=== PATIENT | female | born 1965 | race Caucasian/White ===

== ENCOUNTER 2018-08-23 01:34 | Inpatient (IN) | payer MEDICAID ==
[2018-08-23 02:02] LABS: ADD MAN DIFF? NO
[2018-08-23 02:04] LABS: BASOPHIL # 0.1 10^3/ul (0.0-0.1); BASOPHILS % 0.4 % (0.0-2.0); EOSINOPHILS % 0.1 % (0.0-7.0); HEMATOCRIT 43.4 % (37.0-47.0); HEMOGLOBIN 14.4 g/dl (12.0-16.0); LYMPHOCYTES % 7.6 % (15.0-51.0); MEAN CORPUSCULAR HEMOGLOBIN 29.4 pg (29.0-33.0); MEAN CORPUSCULAR HGB CONC 33.2 g/dl (32.0-37.0); MEAN CORPUSCULAR VOLUME 88.6 fl (82.0-101.0); MEAN PLATELET VOLUME 10.9 fl (7.4-10.4); MONOCYTE # 1.1 10^3/ul (0.3-0.9); MONOCYTES % 8.5 % (0.0-11.0); NEUTROPHIL # 10.4 10^3/ul (1.6-7.5); NEUTROPHILS % 82.9 % (39.0-77.0); PLATELET COUNT 245 10^3/UL (140-415); RED CELL DISTRIBUTION WIDTH 12.4 % (11.5-14.5)
[2018-08-23 02:04] LABS: WHITE BLOOD COUNT 12.5 10^3/ul (4.8-10.8)
[2018-08-23] MEDS: ACETAMINOPHEN 325 MG TAB PO (02:09)
[2018-08-23] MEDS: SODIUM CHLORIDE 0.9% 1L BAG IV* (02:10)
[2018-08-23 02:22] LABS: ADD UMIC YES; UR ASCORBIC ACID NEGATIVE (NEGATIVE); UR BACTERIA FEW /HPF (NONE SEEN); UR BILIRUBIN (Dip) NEGATIVE (NEGATIVE); UR BLOOD (Dip) 2+ mg/dL (NEGATIVE); UR CLARITY CLOUDY (CLEAR); UR COLOR AMBER (YELLOW); UR GLUCOSE (Dip) NEGATIVE (NEGATIVE); UR KETONES (Dip) NEGATIVE (NEGATIVE); UR LEUKOCYTE ESTERASE (Dip) NEGATIVE Leu/ul (NEGATIVE); UR MUCUS MANY /HPF (NONE SEEN); UR NITRITE (Dip) NEGATIVE (NEGATIVE); UR RBC 7 /HPF (0-5); UR SPECIFIC GRAVITY (Dip) 1.031 (1.003-1.030); UR SQUAMOUS EPITHELIAL CELL MANY /HPF (FEW); UR TOTAL PROTEIN (Dip) 3+ mg/dl (NEGATIVE); UR UROBILINOGEN (Dip) 2+ mg/dL (NEGATIVE); UR WBC 18 /HPF (0-5)
[2018-08-23 02:23] LABS: ALANINE AMINOTRANSFERASE 20 IU/L (13-69); ALBUMIN 4.2 g/dl (3.3-4.9); ALKALINE PHOSPHATASE 84 IU/L (42-121); ANION GAP 12 (5-13); ASPARTATE AMINO TRANSFERASE 24 IU/L (15-46); BILIRUBIN,INDIRECT 0.4 mg/dl (0-1.1); BILIRUBIN,TOTAL 0.4 mg/dl (0.2-1.3); BLOOD UREA NITROGEN 11 mg/dl (7-20); CARBON DIOXIDE 26 mmol/L (21-31); CHLORIDE 99 mmol/L (97-110); CREATININE 0.88 mg/dl (0.44-1.00); Estimated GFR > 60 mL/min (>60); GLUCOSE 126 mg/dl (70-220); POTASSIUM 3.6 mmol/L (3.5-5.1); SODIUM 137 mmol/L (135-144); TOTAL PROTEIN 8.4 g/dl (6.1-8.1)
[2018-08-23 02:24] LABS: INR 1.14; PROTIME 14.7 Sec (11.9-14.9); PT RATIO 1.1
[2018-08-23 02:25] LABS: PARTIAL THROMBOPLASTIN TIME 37.2 Sec (23.0-35.0)
[2018-08-23 02:34] LABS: TROPONIN-I < 0.012 ng/ml (0.000-0.120)
[2018-08-23] MEDS: AZTREONAM 2 GM in SOD CHLORIDE 0.9% 100 ML IVPB (03:39)
[2018-08-23] MEDS ORDERED: NACL 0.9% 3 ML SYG IV (04:00)
[2018-08-23] MEDS ORDERED: DOCUSATE SODIUM 100 MG CAP PO (04:00)
[2018-08-23] MEDS ORDERED: BISACODYL (EC) 5 MG TAB PO (04:00)
[2018-08-23] MEDS ORDERED: ACETAMINOPHEN 325 MG TAB PO (04:00)
[2018-08-23 05:57] LABS: LACTIC ACID 0.5 mmol/L (0.5-2.0)
[2018-08-23] MEDS: IOHEXOL 300MG/ML 150 ML BTL (06:37)
[2018-08-23] MEDS: SOD CHLORIDE 0.9% 100 ML (06:37)
[2018-08-23] MEDS: LEVOFLOXACIN 500MG/D5W (PMX) 100 ML IVPB (06:43)
[2018-08-23] MEDS: ASA/ACETAMINOPHEN/CAFF TAB PO (06:59)
[2018-08-23] MEDS: HEPARIN 5,000 UNIT/1 ML VIAL SC ×3 (07:08→22:01)
[2018-08-24] MEDS: LEVOFLOXACIN 750MG/D5W (PMX) 150 ML IVPB (03:51)
[2018-08-24] MEDS ORDERED: LEVOFLOXACIN 750MG/D5W (PMX) 150 ML IVPB (04:00)
[2018-08-24 05:32] LABS: ADD MAN DIFF? NO
[2018-08-24] MEDS: HEPARIN 5,000 UNIT/1 ML VIAL SC ×2 (05:33→14:00)
[2018-08-24 05:38] LABS: WHITE BLOOD COUNT 7.7 10^3/ul (4.8-10.8)
[2018-08-24 05:38] LABS: BASOPHIL # 0.1 10^3/ul (0.0-0.1); BASOPHILS % 0.8 % (0.0-2.0); EOSINOPHILS # 0.1 10^3/ul (0.0-0.5); EOSINOPHILS % 0.8 % (0.0-7.0); HEMOGLOBIN 12.8 g/dl (12.0-16.0); LYMPHOCYTES # 1.1 10^3/ul (0.8-2.9); LYMPHOCYTES % 14.1 % (15.0-51.0); MEAN CORPUSCULAR HEMOGLOBIN 29.4 pg (29.0-33.0); MEAN CORPUSCULAR HGB CONC 32.8 g/dl (32.0-37.0); MEAN CORPUSCULAR VOLUME 89.7 fl (82.0-101.0); MEAN PLATELET VOLUME 10.9 fl (7.4-10.4); MONOCYTE # 0.9 10^3/ul (0.3-0.9); MONOCYTES % 12.1 % (0.0-11.0); NEUTROPHIL # 5.5 10^3/ul (1.6-7.5); NEUTROPHILS % 71.7 % (39.0-77.0); PLATELET COUNT 233 10^3/UL (140-415); RED BLOOD COUNT 4.35 10^6/ul (4.20-5.40); RED CELL DISTRIBUTION WIDTH 12.8 % (11.5-14.5)
[2018-08-24 06:18] LABS: ALANINE AMINOTRANSFERASE 38 IU/L (13-69); ALBUMIN 3.5 g/dl (3.3-4.9); ALBUMIN/GLOBULIN RATIO 0.94; ALKALINE PHOSPHATASE 75 IU/L (42-121); ANION GAP 10 (5-13); ASPARTATE AMINO TRANSFERASE 37 IU/L (15-46); BILIRUBIN,INDIRECT 0.4 mg/dl (0-1.1); BILIRUBIN,TOTAL 0.4 mg/dl (0.2-1.3); BLOOD UREA NITROGEN 8 mg/dl (7-20); CALCIUM 8.6 mg/dl (8.4-10.2); CARBON DIOXIDE 26 mmol/L (21-31); CHLORIDE 104 mmol/L (97-110); CHOL/HDL RATIO 9.4 RATIO; CHOLESTEROL 123 mg/dl (100-200); CREATININE 0.65 mg/dl (0.44-1.00); Estimated GFR > 60 mL/min (>60); GLUCOSE 127 mg/dl (70-220); HDL CHOLESTEROL 13 mg/dl (37-92); LDL CHOLESTEROL,CALCULATED 80 mg/dl; MAGNESIUM 2.1 mg/dl (1.7-2.5); POTASSIUM 3.1 mmol/L (3.5-5.1); SODIUM 140 mmol/L (135-144); TOTAL PROTEIN 7.2 g/dl (6.1-8.1); TRIGLYCERIDES 150 mg/dl (0-149)
[2018-08-24] MEDS: ASA/ACETAMINOPHEN/CAFF TAB PO (06:23)
[2018-08-24 06:46] LABS: THYROID STIMULATING HORMONE 0.918 MIU/L (0.465-4.680)
[2018-08-24 07:11] LABS: HEMOGLOBIN A1C 5.6 % (0-5.9)
[2018-08-24] MEDS: POTASSIUM CHLORIDE 20 MEQ POWDER FOR ORAL SOLN PO (09:04)
== END 2018-08-24 15:10 | disposition home or self-care (01) | DRG 871 ==
LOC: E/R 01:34 → MS1 03:50
DX: A41.9 Sepsis, unspecified organism (principal); J18.9 Pneumonia, unspecified organism; N12 Tubulo-interstitial nephritis, not specified as acute or chronic; R51 Headache; R11.10 Vomiting, unspecified; Z72.0 Tobacco use
CPT/HCPCS: 36415; 70450; 71045; 71260; 80053; 80061; 81001; 83036; 83605; 83735; 84443; 84484; 85025; 85610; 85730; 87040-91; 87086; 93005; 96374; 99285-25